=== PATIENT | female | born 1935 | race Two or more races ===

== ENCOUNTER → 2018-01-20 | Outpatient (CLI) | payer OTHER ==
[~2018-01-20] MED LIST: COZAAR100 MG PO; HYDROCHLOROTH12.5 MG PO; LANTUS100 U/ML; LANTUS100 U/ML IJ; NORVASC10 MG PO; TOPROL XL50 M1 PO
== END | disposition home or self-care (01) ==
LOC: LAB 16:17
DX: N39.0 Urinary tract infection, site not specified (principal); R82.79 Other abnormal findings on microbiological examination of urine

== ENCOUNTER 2020-01-10 12:48 | Outpatient (CLI) | payer OTHER | END 2020-01-10 12:52 | disposition home or self-care (01) | LOC: LAB 12:48 | DX: E55.9 Vitamin D deficiency, unspecified (principal); M85.88 Other specified disorders of bone density and structure, other site; E21.2 Other hyperparathyroidism; E88.89 Other specified metabolic disorders; E56.1 Deficiency of vitamin K; D64.89 Other specified anemias; M06.4 Inflammatory polyarthropathy; M13.88 Other specified arthritis, other site; R65.10 Systemic inflammatory response syndrome (SIRS) of non-infectious origin without acute organ dysfunction ==